=== PATIENT | female | born 1950 | race Caucasian/White ===

== ENCOUNTER 2019-12-31 06:54 | Outpatient (CLI) | payer MEDICARE, OTHER, SELFPAY ==
--- NOTE | 2020-01-02 10:47 | ONC FU_ITS ---
Dr. Jose Patient Follow-Up Note Patient: Marivel Cabrera Unit #: [id number]: 1950 Dicatated By: Nathaniel Jose M.D.Date of Visit:Dec 31, 2019 Onc Med Follow-up/Prog Note Chief Complaint: Lymphoma. 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 She has rheumatoid arthritis, which had been well-controlled on treatment with methotrexate. She was referred to Dr. Franklin in January 2018 with a 1-month history of a lump below the right ear. A CT of the neck on 02/13/2018 showed an enhancing right parotid mass measuring 2.5 cm. The margins of the mass were noted to be slightly irregular, suspicious for microscopic invasion. There was no associated cervical lymphadenopathy. A few prominent cervical lymph nodes were not pathologically enlarged. Fiberoptic video stroboscopy exam on 02/21/2018 was unrevealing. FNA aspiration biopsy was nondiagnostic. On 03/18/2018 she underwent right superficial parotidectomy. 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 By IHC the tumor cells were positive for pax-5, CD 79, BCL-2, CD43, and CD20. There was positive staining for CD10 and BCL 6 in germinal centers only. There was positive staining for CD3 and CD5 in T cells. Cyclin D1 was negative. The Ki-67 was low at 10%. A FISH lymphoma panel was negative for IGH-BCL-2 fusion. On clonal screening by PCR, B-cell clonality IGH and Ig K were detected. I had seen her initially on 04/21/2018. Staging PET/CT on 04/26/2018 showed no evidence for recurrent or residual malignancy. As such, she appeared to have stage IE disease, and in the setting of methotrexate therapy for rheumatoid arthritis, she was advised to just stop the methotrexate. No other treatment was recommended. Her other medical illnesses include hypertension, hyperlipidemia, and GERD. She has a history of smoking 1 pack of cigarettes daily for 30 years. She quit smoking in 2009. She is seen her follow-up visit. She has been feeling good generally. She has good energy and activity tolerance. ECOG score is 0. Her appetite is good. Her weight is up a few pounds. She has no fever or night sweats. She has no shortness of breath, cough, or chest pain. She has no GI or complaints. She has some joint pain, mainly in her index fingers. She has no focal neurologic symptoms. Medications: Atenolol 1 Tablet (of 25 mg) Oral daily, Citalopram Hydrobromide 1 Tablet (of 20 mg) Oral daily, Melatonin 1 Tablet (of 3 mg) Oral at bedtime, Montelukast Sodium 1 Tablet (of 10 mg) Oral daily, Simvastatin 1 Tablet (of 40 mg) Oral daily, TraMADol HCl 1 - 2 Tablet (of 50 mg) Oral four times a day PRN Allergies: No Known Allergies. Review of Systems: Constitutional - Her energy is good. She has normal activity. Appetite is good. Her weight is up a few pounds. No fever, chills, hot flashes, or night sweats. ECOG score is 0, ENMT - No sinus congestion/drainage. No mouth sores. No sore throat or difficulty swallowing, Hematologic/Lymphatic - No abnormal bruising or bleeding, Respiratory - No shortness of breath. No cough. No pleuritic pain or hemoptysis, Cardiovascular - No angina pain. No palpitations, Gastrointestinal - No nausea or vomiting. No heartburn or acid reflux. No diarrhea or constipation. No blood in the stool or black stools, Genitourinary (F) - No dysuria or hematuria. No urinary frequency. No urgency or incontinence, Musculoskeletal - She has joint pain, mainly in both index fingers, Integumentary - No skin complications, Neurologic - No headache or dizziness. No numbness/paresthesias or other focal neurologic symptoms, Psychiatric - She has some anxiety. No insomnia. Vital Signs: Performed on Dec 31, 2019 13:09 Height - 66.00 in Weight - 161.6 lbs (HIGH) BSA - 1.83 sq.m BMI - 26.08 Temperature - 97.3 F (LOW) Pulse - 51 /min (LOW) Respiration - 18 /min BP - 133/55 mm(hg) O2 Sat - 97 % Pain - 0 Physical Examination: Constitutional - She looks good generally, Eyes - Sclerae nonicteric. Conjunctivae clear, ENMT - No lesions noted in the oral cavity, Neck - There is some induration/scarring at the biopsy site in the area of the right mandibular angle. There is no mass palpable, Hematologic/Lymphatic - No cervical, clavicular, or axillary adenopathy, Respiratory - Lungs are clear with good air movement bilaterally, Cardiovascular - Heart rhythm is regular. There is no murmur, gallop, or rub noted, Abdomen - Soft. Liver and spleen are not enlarged. There is no abdominal mass or ascites noted and there is no inguinal adenopathy, Extremities - No edema, Neurologic - No focal neurologic deficits noted. Impression: 1. Patient with low-grade B-cell lymphoma involving the right parotid gland, felt to be most consistent with extranodal marginal zone lymphoma. By clinical evaluation her disease was stage IE. 2. She underwent right superficial parotidectomy on 03/18/2018. 3. She had been on long-term methotrexate therapy for rheumatoid arthritis. Her other medical illnesses include: 4. Hypertension. 5. Hyperlipidemia. 6. GERD. 7. She has a history of gallstone pancreatitis, apparently treated with ERCP. 8. She has a history of anxiety/depression. She has been followed on observation/expectant management after stopping methotrexate. Thus far her arthritis symptoms have not worsened significantly. Overall, she has been doing well clinically, thus far with no evidence of recurrence/progression of the lymphoma. Plan: She remains on observation/expectant management. I will see her again in 6 months. Signed By: Nathaniel Jose M.D. <<Signature on File>>
== END 2019-12-31 06:55 | disposition home or self-care (01) ==
PROVIDERS: Family Provider Family Medicine; PCP Family Medicine; Visit Provider Internal Medicine Medical Oncology
DX: C88.4 Extranodal marginal zone B-cell lymphoma of mucosa-associated lymphoid tissue [MALT-lymphoma] (principal); M06.9 Rheumatoid arthritis, unspecified; I10 Essential (primary) hypertension; E78.5 Hyperlipidemia, unspecified; K21.9 Gastro-esophageal reflux disease without esophagitis; F41.8 Other specified anxiety disorders; Z87.891 Personal history of nicotine dependence; Z79.899 Other long term (current) drug therapy; Z87.19 Personal history of other diseases of the digestive system
CPT/HCPCS: G0463

== ENCOUNTER 2020-03-21 12:29 | Outpatient (CLI) | payer MEDICARE, OTHER, SELFPAY ==
--- NOTE | 2020-03-21 12:55 | MM_ITS ---
WS: [id number] BILATERAL DIGITAL SCREENING MAMMOGRAPHY WITH CAD CLINICAL INFORMATION: SCREENING HISTORY: Screening mammogram. No current complaints. COMPARISON: October 20, 2018 TECHNIQUE: Bilateral CC and MLO views. FINDINGS: Scattered fibroglandular densities bilaterally. No suspicious focal mass, asymmetry, calcifications, or architectural distortion. No evidence of malignancy. Punctate calcifications right breast. Two Rig ht breast biopsy markers. Vascular calcification. MM/[id number] IMPRESSION: BI-RADS: 2-Benign FOLLOW UP: 1 Year Follow-up Recommend return to annual screening mammography.
[2020-03-21 13:32] LABS: Basophils # 0.1 10^3/uL (0.0-0.1); Basophils % 1.1 %; Eosinophils # 0.2 10^3/uL (0.0-0.8); Hematocrit 36.5 % (37.0-47.0); Hemoglobin 11.6 g/dL (11.5-15.3); Lymphocytes # 2.2 10^3/uL (0.8-4.8); Mean Corpuscular HGB Conc 31.8 g/dL (30.0-36.0); Mean Corpuscular Hemoglobin 30.6 pg (28.0-34.0); Mean Corpuscular Volume 96.3 fL (81-99); Mean Platelet Volume 9.3 fL (7.4-10.4); Monocytes # 0.5 10^3/uL (0.2-0.9); Monocytes % 8.6 %; Neutrophils # 2.42 10^3/uL (1.8-7.7); Neutrophils % 46.1 %; Nucleated Red Blood Cells % 0 %; Platelet Count 191 10^3/cmm (130-400); Red Blood Count 3.79 10^6/uL (4.1-5.3); Red Cell Distribution Width 12.2 % (12.1-15.1); White Blood Count 5.3 10^3/uL (4.0-10.0)
[2020-03-21 13:50] LABS: Alanine Aminotransferase 10 U/L (0-33); Albumin Level 4.1 g/dL (3.5-5.2); Alkaline Phosphatase 63 IU/L (35-105); Anion Gap 13.4 (5-19); Aspartate Amino Transferase 18 U/L (0-32); Blood Urea Nitrogen 12 mg/dL (8-23); Calcium 9.6 mg/dL (8.5-10.5); Carbon Dioxide 25 mmol/L (22-29); Chloride 106 mmol/L (98-107); Globulin 2.5 g/dL (1.3-4.6); Glucose 98 mg/dL (65-115); Lactate Dehydrogenase 190 U/L (135-214); Osmolality Calculated 286 mOsm/kg (285-295); Potassium 4.4 mmol/L (3.5-5.1); Sodium 140 mmol/L (136-145); Total Bilirubin 0.3 mg/dL (0.15-1.2); Total Protein 6.6 g/dL (6.6-8.7)
== END 2020-03-21 12:30 | disposition home or self-care (01) ==
LOC: RADSHAW 12:38
PROVIDERS: PCP Family Medicine; Visit Provider Internal Medicine Medical Oncology
DX: Z12.31 Encounter for screening mammogram for malignant neoplasm of breast (principal); C88.4 Extranodal marginal zone B-cell lymphoma of mucosa-associated lymphoid tissue [MALT-lymphoma]
CPT/HCPCS: 77067; 80053; 83615; 85025

== ENCOUNTER 2020-07-07 13:13 | Outpatient (CLI) | payer MEDICARE, OTHER, SELFPAY ==
--- NOTE | 2020-07-10 11:07 | ONC FU_ITS ---
Dr. Jose Patient Follow-Up Note Patient: Marivel Cabrera Unit #: [id number]: 1950 Dicatated By: Nathaniel Jose M.D.Date of Visit:Jul 07, 2020 Onc Med Follow-up/Prog Note Chief Complaint: Lymphoma. 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 She has rheumatoid arthritis, which had been well-controlled on treatment with methotrexate. She was referred to Dr. Franklin in January 2018 with a 1-month history of a lump below the right ear. A CT of the neck on 02/13/2018 showed an enhancing right parotid mass measuring 2.5 cm. The margins of the mass were noted to be slightly irregular, suspicious for microscopic invasion. There was no associated cervical lymphadenopathy. A few prominent cervical lymph nodes were not pathologically enlarged. Fiberoptic video stroboscopy exam on 02/21/2018 was unrevealing. FNA aspiration biopsy was nondiagnostic. On 03/18/2018 she underwent right superficial parotidectomy. 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 By IHC the tumor cells were positive for pax-5, CD 79, BCL-2, CD43, and CD20. There was positive staining for CD10 and BCL 6 in germinal centers only. There was positive staining for CD3 and CD5 in T cells. Cyclin D1 was negative. The Ki-67 was low at 10%. A FISH lymphoma panel was negative for IGH-BCL-2 fusion. On clonal screening by PCR, B-cell clonality IGH and Ig K were detected. I had seen her initially on 04/21/2018. Staging PET/CT on 04/26/2018 showed no evidence for recurrent or residual malignancy. As such, she appeared to have stage IE disease, and in the setting of methotrexate therapy for rheumatoid arthritis, she was advised to just stop the methotrexate. No other treatment was recommended. Her other medical illnesses include hypertension, hyperlipidemia, and GERD. She has a history of smoking 1 pack of cigarettes daily for 30 years. She quit smoking in 2009. She is seen her follow-up visit. She has been feeling good generally. She has good energy and activity tolerance. ECOG score is 0. Her appetite is good and her weight is stable. She has no fever or night sweats. She has no shortness of breath, cough, or chest pain. She has no GI or complaints. She does report having some aching in her hands and wrists, and she also has some stiffness. She has no other joint or bone pain. She has no focal neurologic symptoms. Medications: Atenolol 1 Tablet (of 25 mg) Oral daily, Citalopram Hydrobromide 1 Tablet (of 20 mg) Oral daily, Montelukast Sodium 1 Tablet (of 10 mg) Oral daily, Simvastatin 1 Tablet (of 40 mg) Oral daily, TraMADol HCl 1 - 2 Tablet (of 50 mg) Oral four times a day PRN Allergies: No Known Allergies. Review of Systems: Constitutional - She has good energy and activity tolerance. Appetite is good and weight is stable. No fever, night sweats, or hot flashes. ECOG score is 0, ENMT - No sinus congestion/drainage. No mouth sores. No sore throat or difficulty swallowing, Hematologic/Lymphatic - No abnormal bruising or bleeding, Respiratory - No shortness of breath. No cough. No pleuritic pain or hemoptysis, Cardiovascular - No angina pain. No palpitations, Gastrointestinal - No nausea or vomiting. No heartburn or acid reflux. No diarrhea or constipation. No blood in the stool or black stools, Genitourinary (F) - No dysuria or hematuria. No urinary frequency. No urgency or incontinence, Musculoskeletal - She has some aching in her hands and wrists and some stiffness in her hands. She has no other joint or bone pain, Integumentary - No skin rash, Neurologic - No headache or dizziness. No numbness or tingling. No other focal neurologic symptoms, Psychiatric - Her anxiety/depression is adequately managed. No insomnia. Vital Signs: Performed on Jul 07, 2020 13:31 Height - 66.00 in Weight - 167.6 lbs (HIGH) BSA - 1.86 sq.m BMI - 27.05 Temperature - 97.5 F (LOW) Pulse - 60 /min Respiration - 18 /min BP - 102/60 mm(hg) O2 Sat - 95 % (LOW) Pain - 0 Physical Examination: Constitutional - She looks good generally, Eyes - Sclerae nonicteric. Conjunctivae clear, ENMT - No lesions noted in the oral cavity, Hematologic/Lymphatic - No cervical, clavicular, or axillary adenopathy, Respiratory - Lungs are clear with good air movement bilaterally, Cardiovascular - Heart rhythm is regular. There is no murmur, gallop, or rub noted, Abdomen - Soft. Liver and spleen are not enlarged. There is no abdominal mass or ascites noted and there is no inguinal adenopathy, Extremities - No edema, Neurologic - No focal neurologic deficits noted. Impression: 1. Patient with low-grade B-cell lymphoma involving the right parotid gland, felt to be most consistent with extranodal marginal zone lymphoma. By clinical evaluation her disease was stage IE. 2. She underwent right superficial parotidectomy on 03/18/2018. 3. She had been on long-term methotrexate therapy for rheumatoid arthritis. Her other medical illnesses include: 4. Hypertension. 5. Hyperlipidemia. 6. GERD. 7. She has a history of gallstone pancreatitis, apparently treated with ERCP. 8. She has a history of anxiety/depression. She has been followed on observation/expectant management after stopping methotrexate. She has had some increasing joint pain and stiffness, but mainly just in her hands and wrists, and it is still tolerable. Overall, she is still doing very well clinically with no evidence of recurrence/progression of the lymphoma. Plan: She remains on observation/expectant management. I will see her again in 6 months. In the meantime, she indicates that she is willing to try a daily nonsteroidal anti-inflammatory agent for the rheumatoid arthritis, either Celebrex or meloxicam depending on insurance coverage. Signed By: Nathaniel Jose M.D. <<Signature on File>>
== END 2020-07-07 13:14 | disposition home or self-care (01) ==
LOC: ONCMED 13:15
PROVIDERS: PCP Family Medicine; Visit Provider Internal Medicine Medical Oncology
DX: C88.4 Extranodal marginal zone B-cell lymphoma of mucosa-associated lymphoid tissue [MALT-lymphoma] (principal); M06.9 Rheumatoid arthritis, unspecified; I10 Essential (primary) hypertension; E78.5 Hyperlipidemia, unspecified; K21.9 Gastro-esophageal reflux disease without esophagitis; F41.8 Other specified anxiety disorders; Z79.899 Other long term (current) drug therapy
CPT/HCPCS: 99214; G0463

== ENCOUNTER 2021-01-31 08:24 | Outpatient (CLI) | payer MEDICARE, OTHER, SELFPAY ==
[2021-01-31 09:13] LABS: Basophils # 0.1 10^3/uL (0.0-0.1); Basophils % 1.1 %; Eosinophils # 0.2 10^3/uL (0.0-0.8); Eosinophils % 3.1 %; Hematocrit 38.3 % (37.0-47.0); Hemoglobin 12.8 g/dL (11.5-15.3); Lymphocytes # 1.8 10^3/uL (0.8-4.8); Lymphocytes % 33.3 %; Mean Corpuscular HGB Conc 33.4 g/dL (30.0-36.0); Mean Corpuscular Hemoglobin 31.1 pg (28.0-34.0); Monocytes # 0.5 10^3/uL (0.2-0.9); Monocytes % 9.8 %; Neutrophils # 2.84 10^3/uL (1.8-7.7); Neutrophils % 52.5 %; Nucleated Red Blood Cells % 0 %; Platelet Count 211 10^3/cmm (130-400); Red Blood Count 4.12 10^6/uL (4.1-5.3); Red Cell Distribution Width 11.9 % (12.1-15.1); White Blood Count 5.4 10^3/uL (4.0-10.0)
[2021-01-31 09:45] LABS: Alanine Aminotransferase 7 U/L (0-33); Albumin Level 3.9 g/dL (3.5-5.2); Alkaline Phosphatase 73 IU/L (35-105); Anion Gap 12.4 (5-19); Aspartate Amino Transferase 16 U/L (0-32); Blood Urea Nitrogen 11 mg/dL (8-23); CRP High Sensitivity Cardiac < 0.150 mg/dL (0.0-0.3); Calcium 8.7 mg/dL (8.5-10.5); Carbon Dioxide 26 mmol/L (22-29); Chloride 107 mmol/L (98-107); Globulin 2.9 g/dL (1.3-4.6); Glucose 96 mg/dL (65-115); Lactate Dehydrogenase 187 U/L (135-214); Osmolality Calculated 291 mOsm/kg (285-295); Potassium 4.4 mmol/L (3.5-5.1); Sodium 141 mmol/L (136-145); Total Bilirubin 0.3 mg/dL (0.15-1.2); Total Protein 6.8 g/dL (6.6-8.7)
[2021-01-31 10:47] LABS: Erythrocyte Sedimentation Rate 16 mm/hr (0-15)
--- NOTE | 2021-02-04 09:32 | ONC FU_ITS ---
Dr. Jose Patient Follow-Up Note Patient: Marivel Hollis Unit #: [id number]: [id number] Dicatated By: Nathaniel Jose M.D.Date of Visit:January 31, 2021 Onc Med Follow-up/Prog Note Chief Complaint: Lymphoma. 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 She has rheumatoid arthritis, which had been well-controlled on treatment with methotrexate. She was referred to Dr. Franklin in January 2018 with a 1-month history of a lump below the right ear. A CT of the neck on 02/13/2018 showed an enhancing right parotid mass measuring 2.5 cm. The margins of the mass were noted to be slightly irregular, suspicious for microscopic invasion. There was no associated cervical lymphadenopathy. A few prominent cervical lymph nodes were not pathologically enlarged. Fiberoptic video stroboscopy exam on 02/21/2018 was unrevealing. FNA aspiration biopsy was nondiagnostic. On 03/18/2018 she underwent right superficial parotidectomy. 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 By IHC the tumor cells were positive for pax-5, CD 79, BCL-2, CD43, and CD20. There was positive staining for CD10 and BCL 6 in germinal centers only. There was positive staining for CD3 and CD5 in T cells. Cyclin D1 was negative. The Ki-67 was low at 10%. A FISH lymphoma panel was negative for IGH-BCL-2 fusion. On clonal screening by PCR, B-cell clonality IGH and Ig K were detected. I had seen her initially on 04/21/2018. Staging PET/CT on 04/26/2018 showed no evidence for recurrent or residual malignancy. As such, she appeared to have stage IE disease, and in the setting of methotrexate therapy for rheumatoid arthritis, she was advised to just stop the methotrexate. No other treatment was recommended. Her other medical illnesses include hypertension, hyperlipidemia, and GERD. She has a history of smoking 1 pack of cigarettes daily for 30 years. She quit smoking in 2009. She is seen her follow-up visit. She has been feeling good generally. She has good energy and activity tolerance. Her ECOG score is 0. Appetite also is good. She has no fever or night sweats. She has some allergy related sinus symptoms and she has some associated cough. She does not complain of shortness of breath or chest pain. She has no GI or complaints. She says she is having swelling in her hands, but she is not having any significant joint pain. She does not complain of headache or dizziness. She has no focal neurologic symptoms. Medications: Atenolol 1 Tablet (of 25 mg) Oral daily, Citalopram Hydrobromide 1 Tablet (of 20 mg) Oral daily, Montelukast Sodium 1 Tablet (of 10 mg) Oral daily, Simvastatin 1 Tablet (of 40 mg) Oral daily, TraMADol HCl 1 - 2 Tablet (of 50 mg) Oral four times a day PRN Allergies: No Known Allergies. Vital Signs: Performed on January 31, 2021 10:36 Height - 66.00 in Weight - 173 lbs (HIGH) BSA - 1.88 sq.m BMI - 27.92 Temperature - 97.7 F (LOW) Pulse - 56 /min (LOW) Respiration - 18 /min BP - 155/75 mm(hg) (HIGH) O2 Sat - 96 % Pain - 0 Fatigue - 0 Physical Examination: Constitutional - She looks good generally, Eyes - Sclerae nonicteric. Conjunctivae clear, ENMT - No lesions noted in the oral cavity, Hematologic/Lymphatic - No cervical, clavicular, or axillary adenopathy, Respiratory - Lungs are clear with good air movement bilaterally, Cardiovascular - Heart rhythm is regular. There is no murmur, gallop, or rub noted, Abdomen - Soft. Liver and spleen are not enlarged. There is no abdominal mass or ascites noted and there is no inguinal adenopathy, Extremities - No lower extremity edema. There is some swelling in the fingers, consistent with synovitis, Neurologic - No focal neurologic deficits noted. Lab/Imaging: Test performed on January 31, 2021 08:50 Glucose 96 mg/dL LDH, Total 187 IU/L BUN 11 mg/dL Creatinine 1.0 mg/dL Cr Clearance (Est) 63.0000 mL/min Sodium 141 mmol/L Potassium 4.4 mmol/L Chloride 107 mmol/L CO2 26 mmol/L Calcium 8.7 mg/dL Protein, Total 6.8 g/dL Albumin 3.9 g/dL Globulin 2.9 g/dL Bilirubin, Total 0.3 mg/dL Alkaline Phosphatase 73 IU/L AST (SGOT) 16 IU/L ALT (SGPT) 7 IU/L ESR (Sed Rate) 16 mm/hr WBC 5.4 10^9/L RBC 4.12 10^12/L HGB 12.8 g/dL HCT 38.3 % MCV 93.0 fl MCH 31.1 pg MCHC 33.4 g/dL RDW 11.9 % Platelet Count 211 10^9/L MPV 9.0 fL Neutrophils (Gran) 2.84 10^9/L Lymphocytes 1.8 10^9/L Monocytes 0.5 10^9/L Eosinophils 0.2 10^9/L Basophils 0.1 10^9/L Manual Lymphocytes 33.3 % Manual Monocytes 9.8 % Manual Eosinophils 3.1 % Manual Basophils 1.1 % C-Reactive Protein (mg/dL) 0.150 mg/dL Problem List: 1. Low-grade B-cell lymphoma involving the right parotid gland, felt to be most consistent with extranodal marginal zone lymphoma. By clinical evaluation her disease was stage IE. 2. She underwent right superficial parotidectomy on 03/18/2018. 3. She had been on long-term methotrexate therapy for rheumatoid arthritis. 4. Hypertension. 5. Hyperlipidemia. 6. GERD. 7. She has a history of gallstone pancreatitis, apparently treated with ERCP. 8. She has a history of anxiety/depression. Problems Addressed with this Encounter and Plan: Patient with low-grade B-cell lymphoma involving the right parotid gland, felt to be most consistent with extranodal marginal zone lymphoma. It developed in the setting of long-term methotrexate therapy for rheumatoid arthritis. She underwent right superficial parotidectomy on 03/18/2018. By clinical evaluation her disease was stage IE. She has been on expectant management after stopping methotrexate. During follow-up she has had some arthritis symptoms, mainly in her hands and wrists, but it has been tolerable. Overall, she has been doing well clinically with no evidence of recurrence/progression of the lymphoma. She remains on observation/expectant management. I will see her again in 6 months. Signed By: Nathaniel Jose M.D. <<Signature on File>>
== END 2021-01-31 08:25 | disposition home or self-care (01) ==
PROVIDERS: PCP Family Medicine; Visit Provider Internal Medicine Medical Oncology
DX: Z08 Encounter for follow-up examination after completed treatment for malignant neoplasm (principal); Z85.72 Personal history of non-Hodgkin lymphomas; M06.9 Rheumatoid arthritis, unspecified; I10 Essential (primary) hypertension; E78.5 Hyperlipidemia, unspecified; K21.9 Gastro-esophageal reflux disease without esophagitis; F41.9 Anxiety disorder, unspecified; F32.9 Major depressive disorder, single episode, unspecified; Z79.52 Long term (current) use of systemic steroids; Z86.39 Personal history of other endocrine, nutritional and metabolic disease; Z79.899 Other long term (current) drug therapy
CPT/HCPCS: 36415; 80053; 83615; 85025; 85651; 86141; G0463

== ENCOUNTER 2021-03-22 14:45 | Outpatient (CLI) | payer MEDICARE, OTHER, SELFPAY ==
--- NOTE | 2021-03-22 15:09 | MM_ITS ---
WS: [id number] BILATERAL DIGITAL SCREENING MAMMOGRAPHY WITH CAD CLINICAL INFORMATION: SCREENING;HX OF LYMPHOMA HISTORY: Screening mammogram. No current complaints. COMPARISON: March 21, 2020 TECHNIQUE: Bilateral CC and MLO views. FINDINGS: Scattered fibroglandular densities bilaterally. Vascular calcification. Punctate and lucent centered calcifications. Biopsy marker right breast. No suspicious focal mass, asymmetry, calcifications, or a rchitectural distortion. No evidence of malignancy. MM/[id number] IMPRESSION: BI-RADS: 2-Benign FOLLOW UP: 1 Year Follow-up Recommend return to annual screening mammography.
== END 2021-03-22 14:46 | disposition home or self-care (01) ==
LOC: RADSHAW 14:55
PROVIDERS: PCP Family Medicine; Visit Provider Internal Medicine Medical Oncology
DX: Z12.31 Encounter for screening mammogram for malignant neoplasm of breast (principal)
CPT/HCPCS: 77067

== ENCOUNTER 2021-07-12 13:22 | Outpatient (CLI) | payer MEDICARE, OTHER, SELFPAY ==
[2021-07-12 14:09] LABS: Basophils # 0.1 10^3/uL (0.0-0.1); Basophils % 0.9 %; Eosinophils # 0.1 10^3/uL (0.0-0.8); Eosinophils % 2.4 %; Hematocrit 37.4 % (37.0-47.0); Hemoglobin 12.5 g/dL (11.5-15.3); Lymphocytes % 35.9 %; Mean Corpuscular HGB Conc 33.4 g/dL (30.0-36.0); Mean Corpuscular Hemoglobin 31.4 pg (28.0-34.0); Mean Platelet Volume 9.1 fL (7.4-10.4); Monocytes # 0.6 10^3/uL (0.2-0.9); Monocytes % 11.5 %; Neutrophils # 2.69 10^3/uL (1.8-7.7); Neutrophils % 49.1 %; Nucleated Red Blood Cells % 0 %; Platelet Count 214 10^3/cmm (130-400); Red Blood Count 3.98 10^6/uL (4.1-5.3); White Blood Count 5.5 10^3/uL (4.0-10.0)
[2021-07-12 14:30] LABS: Alanine Aminotransferase 8 U/L (0-33); Albumin Level 3.8 g/dL (3.5-5.2); Alkaline Phosphatase 56 IU/L (35-105); Aspartate Amino Transferase 14 U/L (0-32); Blood Urea Nitrogen 8 mg/dL (8-23); Calcium 8.7 mg/dL (8.5-10.5); Chloride 105 mmol/L (98-107); Chol HDL Ratio 4.16 mg/dL (0.0-4.40); Cholesterol 158 mg/dL (0-200); Globulin 2.6 g/dL (1.3-4.6); Glucose 90 mg/dL (65-115); HDL Cholesterol 38 mg/dL (60-100); LDL Cholesterol Calculated 84 mg/dL (50-129); LDL HDL Ratio 2.21 RATIO (0.00-3.22); Lactate Dehydrogenase 195 U/L (135-214); Osmolality Calculated 286 mOsm/kg (285-295); Potassium 4.2 mmol/L (3.5-5.1); Sodium 139 mmol/L (136-145); Total Bilirubin 0.2 mg/dL (0.15-1.2); Total Protein 6.4 g/dL (6.6-8.7); Triglycerides 178 mg/dL (0-150)
[2021-07-12 21:06] LABS: Anion Gap 14.2 (5-19); Carbon Dioxide 24 mmol/L (22-29)
[2021-07-13 14:06] LABS: Erythrocyte Sedimentation Rate 11 mm/hr (0-15)
--- NOTE | 2021-07-15 10:31 | ONC FU_ITS ---
Dr. Jose Patient Follow-Up Note Patient: Marivel Hollis Unit #: [id number]: [id number] Dicatated By: Nathaniel Jose M.D.Date of Visit:Jul 12, 2021 Onc Med Follow-up/Prog Note Chief Complaint: Lymphoma. 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 She has rheumatoid arthritis, which had been well-controlled on treatment with methotrexate. She was referred to Dr. Franklin in January 2018 with a 1-month history of a lump below the right ear. A CT of the neck on 02/13/2018 showed an enhancing right parotid mass measuring 2.5 cm. The margins of the mass were noted to be slightly irregular, suspicious for microscopic invasion. There was no associated cervical lymphadenopathy. A few prominent cervical lymph nodes were not pathologically enlarged. Fiberoptic video stroboscopy exam on 02/21/2018 was unrevealing. FNA aspiration biopsy was nondiagnostic. On 03/18/2018 she underwent right superficial parotidectomy. 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 By IHC the tumor cells were positive for pax-5, CD 79, BCL-2, CD43, and CD20. There was positive staining for CD10 and BCL 6 in germinal centers only. There was positive staining for CD3 and CD5 in T cells. Cyclin D1 was negative. The Ki-67 was low at 10%. A FISH lymphoma panel was negative for IGH-BCL-2 fusion. On clonal screening by PCR, B-cell clonality IGH and Ig K were detected. I had seen her initially on 04/21/2018. Staging PET/CT on 04/26/2018 showed no evidence for recurrent or residual malignancy. As such, she appeared to have stage IE disease, and in the setting of methotrexate therapy for rheumatoid arthritis, she was advised to just stop the methotrexate. No other treatment was recommended. Her other medical illnesses include hypertension, hyperlipidemia, and GERD. She has a history of smoking 1 pack of cigarettes daily for 30 years. She quit smoking in 2009. She is seen her follow-up visit. She has been feeling good generally. Her only significant complaint is that the arthritis in her hands has been getting a little worse. Thus far she just manages the pain with Tylenol. She has good energy and activity tolerance. ECOG score is 0. Her appetite is good. She has no fever or night sweats. She has some allergy related sinus symptoms. She does not complain of cough, and she has not been having shortness of breath or chest pain. She has no GI or complaints. In addition to the pain in her hands, she also occasionally has pain in her ankles. She does not complain of headache or dizziness. She has no focal neurologic symptoms. Medications: Atenolol 1 Tablet (of 25 mg) Oral daily, Citalopram Hydrobromide 1 Tablet (of 20 mg) Oral daily, Montelukast Sodium 1 Tablet (of 10 mg) Oral daily, Simvastatin 1 Tablet (of 40 mg) Oral daily, TraMADol HCl 1 - 2 Tablet (of 50 mg) Oral four times a day PRN Allergies: No Known Allergies. Vital Signs: Performed on Jul 12, 2021 15:36 Height - 66.00 in Weight - 174.8 lbs (HIGH) BSA - 1.89 sq.m BMI - 28.21 Temperature - 97.7 F (LOW) Pulse - 64 /min Respiration - 18 /min BP - 135/79 mm(hg) O2 Sat - 99 % Pain - 0 Fatigue - 0 Physical Examination: Constitutional - She looks good generally, Eyes - Sclerae nonicteric. Conjunctivae clear, ENMT - No lesions noted in the oral cavity, Hematologic/Lymphatic - No cervical, clavicular, or axillary adenopathy, Respiratory - Lungs are clear with good air movement bilaterally, Cardiovascular - Heart rhythm is regular. There is no murmur, gallop, or rub noted, Abdomen - Soft. Liver and spleen are not enlarged. There is no abdominal mass or ascites noted and there is no inguinal adenopathy, Extremities - No lower extremity edema. There is mild swelling/synovitis in both hands and there is mild ulnar deviation, Neurologic - No focal neurologic deficits noted. Lab/Imaging: Test performed on Jul 12, 2021 13:45 CRP, High Sensitivity 0.160 mg/dL Cholesterol, Total 158 mg/dL LDH (Total) 195 U/L Sodium 139 mmol/L Potassium 4.2 mmol/L Triglycerides 178 mg/dL Chloride 105 mmol/L LDL Cholesterol 84 mg/dL CO2 24 mmol/L Anion Gap 14.2 HDL Cholesterol 38 mg/dL BUN 8 mg/dL Cholesterol/HDL Ratio 4.16 mg/dL Creatinine 0.8 mg/dL LDL / HDL Ratio 2.21 RATIO Cr Clearance (Est) 79.56 mL/min Glucose 90 mg/dL Osmolality - Calculated 286 mOsm/kg Calcium 8.7 mg/dL Protein, Total 6.4 g/dL Albumin 3.8 g/dL Globulin 2.6 g/dL Bilirubin, Total 0.2 mg/dL ALT (SGPT) 8 U/L AST (SGOT) 14 U/L Alkaline Phosphatase 56 IU/L ESR (Sed Rate) 11 mm/hr WBC 5.5 10 3/uL RBC 3.98 10 6/uL HGB 12.5 g/dL HCT 37.4 % MCV 94.0 fl MCH 31.4 pg MCHC 33.4 g/dL RDW 12.0 % Platelet Count 214 10 3/cmm MPV 9.1 fL Neutrophils 2.69 10 3/uL Lymphocytes 2.0 10 3/uL Monocytes 0.6 10 3/uL Eosinophils 0.1 10 3/uL Basophils 0.1 10 3/uL Neutrophil % 49.1 % Lymphocyte % 35.9 % Monocyte % 11.5 % Eosinophil % 2.4 % Basophils % 0.9 % NRBC % 0 % Problem List: 1. Low-grade B-cell lymphoma involving the right parotid gland, felt to be most consistent with extranodal marginal zone lymphoma. By clinical evaluation her disease was stage IE. 2. She underwent right superficial parotidectomy on 03/18/2018. 3. She had been on long-term methotrexate therapy for rheumatoid arthritis. 4. Hypertension. 5. Hyperlipidemia. 6. GERD. 7. She has a history of gallstone pancreatitis, apparently treated with ERCP. 8. She has a history of anxiety/depression. Problems Addressed with this Encounter and Plan: Patient with low-grade B-cell lymphoma involving the right parotid gland, felt to be most consistent with extranodal marginal zone lymphoma. It developed in the setting of long-term methotrexate therapy for rheumatoid arthritis. She underwent right superficial parotidectomy on 03/18/2018. By clinical evaluation her disease was stage IE. She has been on expectant management after stopping methotrexate. During follow-up she has had some arthritis symptoms, mainly in her hands and wrists, and that does seem to be getting gradually worse. There has been no evidence, though, of recurrence/progression of the lymphoma. As such, she will continue on expectant management. At this point she will be given a prescription for meloxicam 15 mg daily. I will see her again in 6 months. Signed By: Nathaniel Jose M.D. <<Signature on File>>
== END 2021-07-12 13:23 | disposition home or self-care (01) ==
LOC: ONCMED 13:27
PROVIDERS: PCP Family Medicine; Visit Provider Internal Medicine Medical Oncology
DX: E78.5 Hyperlipidemia, unspecified (principal); K21.9 Gastro-esophageal reflux disease without esophagitis; Z85.3 Personal history of malignant neoplasm of breast; Z87.891 Personal history of nicotine dependence; Z79.899 Other long term (current) drug therapy
CPT/HCPCS: 36415; 80053; 80061; 83615; 85025; 85651; 86141; 99214

== ENCOUNTER 2022-03-05 11:31 | Oncology outpatient (recurring) (ONCR) | payer MEDICARE, OTHER, SELFPAY ==
[2022-03-05 12:19] LABS: Basophils # 0.1 10^3/uL (0.0-0.1); Basophils % 0.9 %; Eosinophils # 0.2 10^3/uL (0.0-0.8); Eosinophils % 2.3 %; Hematocrit 35.3 % (37.0-47.0); Hemoglobin 12.2 g/dL (11.5-15.3); Lymphocytes % 30.4 %; Mean Corpuscular HGB Conc 34.6 g/dL (30.0-36.0); Mean Corpuscular Hemoglobin 30.9 pg (28.0-34.0); Mean Corpuscular Volume 89.4 fl (81-99); Mean Platelet Volume 9.2 fL (7.4-10.4); Monocytes # 0.7 10^3/uL (0.2-0.9); Monocytes % 10.1 %; Neutrophils # 3.69 10^3/uL (1.8-7.7); Neutrophils % 55.8 %; Nucleated Red Blood Cells % 0 %; Platelet Count 245 10^3/cmm (130-400); Red Blood Count 3.95 10^6/uL (4.1-5.3); White Blood Count 6.6 10^3/uL (4.0-10.0)
[2022-03-05 12:38] LABS: Alanine Aminotransferase 6 U/L (0-33); Albumin Level 3.9 g/dL (3.5-5.2); Alkaline Phosphatase 66 IU/L (35-105); Aspartate Amino Transferase 13 U/L (0-32); Blood Urea Nitrogen 11 mg/dL (8-23); Calcium 9.2 mg/dL (8.5-10.5); Carbon Dioxide 27 mmol/L (22-29); Chloride 106 mmol/L (98-107); Globulin 2.8 g/dL (1.3-4.6); Glucose 95 mg/dL (65-115); Osmolality Calculated 293 mOsm/kg (285-295); Sodium 142 mmol/L (136-145); Total Bilirubin 0.2 mg/dL (0.15-1.2); Total Protein 6.7 g/dL (6.6-8.7)
[2022-03-05 13:04] LABS: Anion Gap 12.9 (5-19); Lactate Dehydrogenase 210 U/L (135-214); Potassium 3.9 mmol/L (3.5-5.1)
== END 2022-03-05 23:59 | disposition home or self-care (01) ==
PROVIDERS: PCP Family Medicine; Referring Provider Specialist; Visit Provider Internal Medicine Medical Oncology
DX: Z08 Encounter for follow-up examination after completed treatment for malignant neoplasm (principal); Z85.72 Personal history of non-Hodgkin lymphomas; M06.9 Rheumatoid arthritis, unspecified; M54.31 Sciatica, right side; Z92.25 Personal history of immunosuppression therapy; Z87.891 Personal history of nicotine dependence
CPT/HCPCS: 80053; 83615; 85025; G0463

== ENCOUNTER 2022-09-24 14:20 | Oncology outpatient (recurring) (ONCR) | payer MEDICARE, OTHER, SELFPAY ==
[2022-09-24 14:37] LABS: Basophils # 0.1 10^3/uL (0.0-0.1); Basophils % 1.3 %; Eosinophils # 0.1 10^3/uL (0.0-0.8); Eosinophils % 1.9 %; Hematocrit 39.3 % (37.0-47.0); Hemoglobin 12.7 g/dL (11.5-15.3); Lymphocytes # 2.6 10^3/uL (0.8-4.8); Lymphocytes % 35.7 %; Mean Corpuscular HGB Conc 32.3 g/dL (30.0-36.0); Mean Corpuscular Volume 95.9 fl (81-99); Mean Platelet Volume 9.2 fL (7.4-10.4); Monocytes # 0.6 10^3/uL (0.2-0.9); Monocytes % 8.9 %; Neutrophils # 3.73 10^3/uL (1.8-7.7); Neutrophils % 51.9 %; Nucleated Red Blood Cells % 0 %; Platelet Count 219 10^3/cmm (130-400); Red Cell Distribution Width 12.2 % (12.1-15.1); White Blood Count 7.2 10^3/uL (4.0-10.0)
[2022-09-24 15:11] LABS: Alanine Aminotransferase 8 U/L (0-33); Albumin Level 3.9 g/dL (3.5-5.2); Alkaline Phosphatase 73 U/L (35-105); Anion Gap 15.5 (5-19); Aspartate Amino Transferase 14 U/L (0-32); Blood Urea Nitrogen 10 mg/dL (8-23); Calcium 8.8 mg/dL (8.5-10.5); Carbon Dioxide 25 mmol/L (22-29); Chloride 104 mmol/L (98-107); Globulin 2.8 g/dL (1.3-4.6); Glucose 86 mg/dL (65-115); Lactate Dehydrogenase 186 U/L (135-214); Osmolality Calculated 288 mOsm/kg (285-295); Potassium 4.5 mmol/L (3.5-5.1); Sodium 140 mmol/L (136-145); Total Bilirubin 0.3 mg/dL (0.15-1.2); Total Protein 6.7 g/dL (6.6-8.7)
[2022-09-24 18:16] LABS: Erythrocyte Sedimentation Rate 9 mm/hr (0-15)
== END 2022-10-09 23:59 | disposition home or self-care (01) ==
PROVIDERS: PCP Family Medicine; Visit Provider Internal Medicine Medical Oncology
DX: Z08 Encounter for follow-up examination after completed treatment for malignant neoplasm (principal); Z85.72 Personal history of non-Hodgkin lymphomas; Z90.09 Acquired absence of other part of head and neck; M06.031 Rheumatoid arthritis without rheumatoid factor, right wrist; M06.032 Rheumatoid arthritis without rheumatoid factor, left wrist; M06.041 Rheumatoid arthritis without rheumatoid factor, right hand; M06.042 Rheumatoid arthritis without rheumatoid factor, left hand; Z79.899 Other long term (current) drug therapy; Z87.891 Personal history of nicotine dependence; Z92.25 Personal history of immunosuppression therapy
CPT/HCPCS: 36415; 80053; 83615; 85025; 85651; 99214

== ENCOUNTER → 2022-10-23 09:24 | Outpatient (BNVA) | payer MEDICARE, OTHER, SELFPAY | PROVIDERS: PCP Family Medicine; Visit Provider Internal Medicine | DX: M79.89 Other specified soft tissue disorders (principal); M06.9 Rheumatoid arthritis, unspecified; Z11.59 Encounter for screening for other viral diseases; Z11.1 Encounter for screening for respiratory tuberculosis | CPT/HCPCS: 36415; 72100; 73120; 80053; 84443; 85025; 85651; 86140; 86200; 86431; 86480; 86704; 86803; 87340; 99204 ==

== ENCOUNTER → 2022-12-12 08:38 | Outpatient (BNVA) | payer MEDICARE, OTHER, SELFPAY | PROVIDERS: PCP Family Medicine; Visit Provider Internal Medicine | DX: M06.9 Rheumatoid arthritis, unspecified (principal); M79.89 Other specified soft tissue disorders | CPT/HCPCS: 99214 ==

== ENCOUNTER → 2023-01-07 08:48 | Outpatient (BNVA) | payer MEDICARE, OTHER, SELFPAY | PROVIDERS: PCP Family Medicine; Visit Provider Internal Medicine | DX: M79.89 Other specified soft tissue disorders (principal); M06.9 Rheumatoid arthritis, unspecified | CPT/HCPCS: 20600; 99213; J1030 ==

== ENCOUNTER 2023-03-26 12:38 | Oncology outpatient (recurring) (ONCR) | payer MEDICARE, OTHER, SELFPAY ==
[2023-03-26 12:40] VITALS: BP 141/76; PULSE 62; RESP 18; TEMP 36.2; O2SAT 94
[2023-03-26 12:50] LABS: Basophils # 0.1 10^3/uL (0.0-0.1); Basophils % 1.5 %; Eosinophils # 0.1 10^3/uL (0.0-0.8); Eosinophils % 2.3 %; Hemoglobin 12.9 g/dL (11.5-15.3); Lymphocytes # 2.3 10^3/uL (0.8-4.8); Lymphocytes % 37.6 %; Mean Corpuscular HGB Conc 33.9 g/dL (30.0-36.0); Mean Corpuscular Hemoglobin 31.1 pg (28.0-34.0); Mean Corpuscular Volume 91.6 fl (81-99); Mean Platelet Volume 8.8 fL (7.4-10.4); Monocytes # 0.5 10^3/uL (0.2-0.9); Monocytes % 8.2 %; Neutrophils # 3.11 10^3/uL (1.8-7.7); Neutrophils % 50.2 %; Nucleated Red Blood Cells % 0 %; Platelet Count 217 10^3/cmm (130-400); Red Blood Count 4.15 10^6/uL (4.1-5.3); Red Cell Distribution Width 12.3 % (12.1-15.1); White Blood Count 6.2 10^3/uL (4.0-10.0)
[2023-03-26 13:09] LABS: Alanine Aminotransferase 6 U/L (0-33); Alkaline Phosphatase 68 U/L (35-105); Anion Gap 13.9 (5-19); Aspartate Amino Transferase 12 U/L (0-32); Blood Urea Nitrogen 11 mg/dL (8-23); Calcium 9.3 mg/dL (8.5-10.5); Carbon Dioxide 25 mmol/L (22-29); Chloride 106 mmol/L (98-107); Globulin 2.8 g/dL (1.3-4.6); Glucose 102 mg/dL (65-115); Lactate Dehydrogenase 179 U/L (135-214); Osmolality Calculated 292 mOsm/kg (285-295); Potassium 3.9 mmol/L (3.5-5.1); Sodium 141 mmol/L (136-145); Total Bilirubin 0.4 mg/dL (0.15-1.2); Total Protein 6.8 g/dL (6.6-8.7)
== END 2023-04-08 23:59 | disposition home or self-care (01) ==
PROVIDERS: PCP Family Medicine; Visit Provider Internal Medicine Medical Oncology
DX: Z08 Encounter for follow-up examination after completed treatment for malignant neoplasm (principal); Z85.72 Personal history of non-Hodgkin lymphomas; Z90.09 Acquired absence of other part of head and neck; M06.031 Rheumatoid arthritis without rheumatoid factor, right wrist; M06.032 Rheumatoid arthritis without rheumatoid factor, left wrist; M06.041 Rheumatoid arthritis without rheumatoid factor, right hand; M06.042 Rheumatoid arthritis without rheumatoid factor, left hand; Z79.899 Other long term (current) drug therapy; Z87.891 Personal history of nicotine dependence; Z92.25 Personal history of immunosuppression therapy
CPT/HCPCS: 36415; 80053; 83615; 85025; 99213

== ENCOUNTER 2023-03-29 13:47 | Outpatient (CLI) | payer MEDICARE, OTHER, SELFPAY ==
--- NOTE | 2023-03-29 14:02 | MM_ITS ---
WS: [id number] BILATERAL 3D TOMOSYNTHESIS DIGITAL SCREENING MAMMOGRAPHY WITH CAD CLINICAL INFORMATION: SCREENING HISTORY: Screening mammogram. No current complaints. COMPARISON: 2020 TECHNIQUE: Bilateral CC and MLO views. FINDINGS: Scattered fibroglandular densities bilaterally. No suspicious focal mass, asymmetry, calcifications, or architectural distortion. No evidence of malignancy. Biopsy clip RIGHT breast. Vascular calcificat ion. Punctate and lucent centered calcifications. MM/[id number] IMPRESSION: BI-RADS: 2-Benign FOLLOW UP: 1 Year Follow-up Recommend return to annual screening mammography.
== END 2023-03-29 13:48 | disposition home or self-care (01) ==
PROVIDERS: PCP Family Medicine; Visit Provider Family Medicine
DX: Z12.31 Encounter for screening mammogram for malignant neoplasm of breast (principal)
CPT/HCPCS: 77063; 77067

== ENCOUNTER 2024-03-16 11:09 | Oncology outpatient (recurring) (ONCR) | payer MEDICARE, OTHER, SELFPAY ==
[2024-03-16 11:41] LABS: Basophils # 0.1 10^3/uL (0.0-0.1); Basophils % 1.7 %; Eosinophils # 0.1 10^3/uL (0.0-0.8); Eosinophils % 2.6 %; Hematocrit 39.6 % (36-47); Lymphocytes # 1.7 10^3/uL (0.8-4.8); Lymphocytes % 31.1 %; Mean Corpuscular HGB Conc 32.3 g/dL (30-55); Mean Corpuscular Hemoglobin 30.3 pg (27-33); Mean Corpuscular Volume 93.6 fl (85-98); Mean Platelet Volume 9.1 fL (7.4-10.4); Monocytes # 0.4 10^3/uL (0.2-0.9); Monocytes % 7.6 %; Neutrophils # 3.09 10^3/uL (1.8-7.7); Neutrophils % 56.8 %; Nucleated Red Blood Cells % 0 %; Platelet Count 205 10^3/cmm (157-399); Red Blood Count 4.23 10^6/uL (3.85-5.65); Red Cell Distribution Width 12.4 % (12.1-15.1); White Blood Count 5.43 10^3/uL (3.29-11.43)
[2024-03-16 11:57] LABS: Alanine Aminotransferase 7 U/L (0-33); Albumin Level 4.1 g/dL (3.5-5.2); Alkaline Phosphatase 72 U/L (35-105); Anion Gap 12.5 (5-19); Aspartate Amino Transferase 16 U/L (0-32); Blood Urea Nitrogen 12 mg/dL (8-23); Calcium 9.1 mg/dL (8.5-10.5); Carbon Dioxide 27 mmol/L (22-29); Chloride 105 mmol/L (98-107); Globulin 2.9 g/dL (1.3-4.6); Glucose 95 mg/dL (65-115); Lactate Dehydrogenase 172 U/L (135-214); Osmolality Calculated 290 mOsm/kg (285-295); Potassium 4.5 mmol/L (3.5-5.1); Sodium 140 mmol/L (136-145); Total Bilirubin 0.4 mg/dL (0.15-1.2)
== END 2024-04-08 23:59 | disposition home or self-care (01) ==
PROVIDERS: PCP Family Medicine; Visit Provider Internal Medicine Medical Oncology
DX: Z79.899 Other long term (current) drug therapy; Z87.891 Personal history of nicotine dependence; Z92.25 Personal history of immunosuppression therapy; C88.4 Extranodal marginal zone B-cell lymphoma of mucosa-associated lymphoid tissue [MALT-lymphoma]; M06.9 Rheumatoid arthritis, unspecified
CPT/HCPCS: 36415; 80053; 83615; 85025; 99214

== ENCOUNTER 2024-04-10 11:55 | Outpatient (CLI) | payer MEDICARE, OTHER, SELFPAY ==
--- NOTE | 2024-04-10 12:05 | MM_ITS ---
WS: [id number] BILATERAL SCREENING DIGITAL TOMOSYNTHESIS MAMMOGRAM WITH CAD HISTORY: SCREENING COMPARISON: 03/29/2023, 03/22/2021 Bilateral CC and MLO views with tomosynthesis and synthetic mammography submitted. Computer aided det ection analyzed. Breast composition: There are scattered areas of fibroglandular density. No suspicious masses, microc alcifications or architectural distortion. Benign calcifications. There are a few small asymmetries i n the RIGHT breast which are stable. MM/[id number] IMPRESSION: BI-RADS: 2-Benign FOLLOW UP: 1 Year Follow-up
== END 2024-04-10 11:56 | disposition home or self-care (01) ==
LOC: RAD 11:55
PROVIDERS: PCP Family Medicine; Visit Provider Family Medicine
DX: Z12.31 Encounter for screening mammogram for malignant neoplasm of breast (principal); R92.323 Mammographic fibroglandular density, bilateral breasts; R92.1 Mammographic calcification found on diagnostic imaging of breast
CPT/HCPCS: 77063; 77067

== ENCOUNTER → 2024-05-25 12:41 | Outpatient (BNVA) | payer MEDICARE, OTHER, SELFPAY | PROVIDERS: PCP Family Medicine; Referring Provider Family Medicine; Visit Provider Nurse Practitioner Family | DX: L82.0 Inflamed seborrheic keratosis (principal); B35.3 Tinea pedis; L70.0 Acne vulgaris; L82.1 Other seborrheic keratosis; L73.8 Other specified follicular disorders | CPT/HCPCS: 17110; 99204 ==

== ENCOUNTER → 2024-07-06 11:27 | Outpatient (BNVA) | payer MEDICARE, OTHER, SELFPAY | PROVIDERS: PCP Family Medicine; Visit Provider Nurse Practitioner Family | DX: L82.0 Inflamed seborrheic keratosis (principal); B35.3 Tinea pedis; Z85.828 Personal history of other malignant neoplasm of skin | CPT/HCPCS: 17110; 99213 ==

== ENCOUNTER 2025-03-16 10:56 | Oncology outpatient (recurring) (ONCR) | payer MEDICARE, OTHER, SELFPAY ==
[2025-03-16 11:18] LABS: Hematocrit 38.2 % (36-47); Hemoglobin 12.70 g/dL (11.27-16.99); Mean Corpuscular HGB Conc 33.2 g/dL (30-55); Mean Corpuscular Hemoglobin 31.0 pg (27-33); Mean Corpuscular Volume 93.2 fl (85-98); Nucleated Red Blood Cells % 0 %; Platelet Count 267 10^3/cmm (157-399); Red Blood Count 4.10 10^6/uL (3.85-5.65); White Blood Count 7.54 10^3/uL (3.29-11.43)
[2025-03-16 11:42] LABS: Alanine Aminotransferase 9 U/L (0-33); Albumin Level 3.9 g/dL (3.5-5.2); Alkaline Phosphatase 116 U/L (35-105); Anion Gap 16.2 (5-19); Aspartate Amino Transferase 16 U/L (0-32); Blood Urea Nitrogen 14 mg/dL (8-23); Calcium 9.2 mg/dL (8.5-10.5); Carbon Dioxide 24 mmol/L (22-29); Chloride 104 mmol/L (98-107); Globulin 3.1 g/dL (1.3-4.6); Glucose 96 mg/dL (65-115); Osmolality Calculated 290 mOsm/kg (285-295); Potassium 4.2 mmol/L (3.5-5.1); Sodium 140 mmol/L (136-145); Total Protein 7.0 g/dL (6.6-8.7)
== END 2025-04-08 23:59 | disposition home or self-care (01) ==
PROVIDERS: Nurse Practitioner Family; PCP Family Medicine; Visit Provider Nurse Practitioner
DX: Z08 Encounter for follow-up examination after completed treatment for malignant neoplasm (principal); Z85.89 Personal history of malignant neoplasm of other organs and systems; Z87.891 Personal history of nicotine dependence
CPT/HCPCS: 36415; 80053; 83615; 85025; 99214